=== PATIENT | male | born 1975 | race Caucasian/White ===

== ENCOUNTER 2023-05-23 10:28 | Observation (INO) | payer OTHER ==
[2023-05-23] MEDS ORDERED: ONDANSETRON 4 MG/2 ML VIAL IVPUSH ONE (11:07)
[2023-05-23] MEDS ORDERED: SODIUM CHLORIDE 0.9% 500 ML INFUS.BAG IV ONE ×3 (11:07→13:11)
[2023-05-23] MEDS ORDERED: FAMOTIDINE 20 MG/50 ML IVPB 20 MG/50 ML MG IVPB ONE ×2 (11:07→12:40)
[2023-05-23] MEDS ORDERED: diazePAM CARPU-JECT 10 MG/2 ML DISP.SYRIN IVPUSH ONE (11:27)
[2023-05-23 11:33] LABS: BASO % 0.3 % (0-2.0); EOS % 0.3 % (0-4.5); HEMATOCRIT 47.7 % (35.4-49); HEMOGLOBIN 16.2 GM/dL (11.7-16.9); LYMPH % 21.5 % (8-40); MCH 30.9 pg (25.7-33.7); MEAN CELL VOLUME 90.8 fl (80-96); MONO % 3.8 % (3.8-10.2); NEUT % 74.1 % (42.8-82.8); PLATELET COUNT 255 10^3/uL (134-434); RBC 5.25 M/mm3 (4.00-5.60)
[2023-05-23 11:39] LABS: INR 1.12 (0.83-1.09)
[2023-05-23 11:42] LABS: ACTIVATED PTT 27.8 SECONDS (25.2-36.5)
[2023-05-23 12:30] VITALS: BMI 23.7
[2023-05-23 12:32] LABS: CALCIUM 10.3 mg/dL (8.5-10.1); POTASSIUM 3.5 mmol/L (3.5-5.1)
[2023-05-23 12:33] LABS: ALBUMIN 4.5 g/dl (3.4-5.0); BLOOD UREA NITROGEN 23.1 mg/dL (7-18)
[2023-05-23 12:36] LABS: CREATININE 1.4 mg/dL (0.55-1.3)
[2023-05-23 12:38] LABS: BILIRUBIN,TOTAL 0.9 mg/dL (0.2-1); TOT PROT 7.4 g/dl (6.4-8.2)
[2023-05-23] MEDS ORDERED: diazePAM CARPU-JECT 10 MG/2 ML DISP.SYRIN ONE (12:40)
[2023-05-23 12:47] LABS: MAGNESIUM 1.8 mg/dL (1.8-2.4)
[2023-05-23 18:11] LABS: POTASSIUM 4.1 mmol/L (3.5-5.1)
[2023-05-23 18:13] LABS: BLOOD UREA NITROGEN 19.4 mg/dL (7-18)
[2023-05-23 18:19] LABS: CALCIUM 8.5 mg/dL (8.5-10.1)
[2023-05-23] MEDS ORDERED: MECLIZINE HCL 12.5 MG TABLET PO PRN (21:59)
[2023-05-23] MEDS ORDERED: SODIUM CHLORIDE 1,000 ML IV SCH (22:00)
[2023-05-23 23:00] LABS: URINE APPEARANCE CLEAR; URINE BILIRUBIN NEGATIVE (NEGATIVE); URINE COLOR YELLOW; URINE GLUCOSE (UA) NEGATIVE (NEGATIVE); URINE KETONE NEGATIVE (NEGATIVE); URINE LEUK ESTERASE NEGATIVE (NEGATIVE); URINE NITRITE NEGATIVE (NEGATIVE); URINE PROTEIN NEGATIVE (NEGATIVE); URINE UROBILINOGEN 0.2 mg/dL (0.2-1.0)
[2023-05-23 23:20] LABS: COCAINE, UR NEGATIVE (NEGATIVE); METHADONE, UR NEGATIVE (NEGATIVE); OPIATES, URI NEGATIVE (NEGATIVE); URINE AMPHETAMINES NEGATIVE (NEGATIVE)
[2023-05-23] MEDS: INSULIN SLIDING SCALE (NOVOLOG) 1 VIAL SQ SCH (23:20)
[2023-05-23 23:21] LABS: PHENCYCLIDINE,URINE NEGATIVE (NEGATIVE); URINE BARBITURATES NEGATIVE (NEGATIVE)
[2023-05-23 23:46] LABS: URINE BENZODIAZEPINES POSITIVE (NEGATIVE)
[2023-05-24] MEDS: INSULIN SLIDING SCALE (NOVOLOG) 1 VIAL SQ SCH ×2 (07:44→12:45)
[2023-05-24 08:53] LABS: HEMATOCRIT 40.1 % (35.4-49); HEMOGLOBIN 14.4 GM/dL (11.7-16.9); MCH 32.2 pg (25.7-33.7); MCHC 35.8 g/dl (32.0-35.9); MEAN PLT VOLUME 9.2 fl (7.5-11.1); PLATELET COUNT 218 10^3/uL (134-434); RBC 4.46 M/mm3 (4.00-5.60); RDW 13.6 % (11.9-15.9); WHITE BLOOD COUNT 10.4 K/mm3 (4.0-10.0)
[2023-05-24 09:13] LABS: POTASSIUM 3.6 mmol/L (3.5-5.1)
[2023-05-24 09:18] LABS: CALCIUM 8.6 mg/dL (8.5-10.1)
[2023-05-24 09:19] LABS: ALBUMIN 3.6 g/dl (3.4-5.0); BLOOD UREA NITROGEN 15.9 mg/dL (7-18); MAGNESIUM 2.1 mg/dL (1.8-2.4)
[2023-05-24 09:22] LABS: CREATININE 0.8 mg/dL (0.55-1.3); PHOSPHOROUS 2.9 mg/dL (2.5-4.9)
[2023-05-24 09:24] LABS: BILIRUBIN,TOTAL 0.6 mg/dL (0.2-1); TOT PROT 6.1 g/dl (6.4-8.2)
[2023-05-24] MEDS ORDERED: LACTATED RINGERS SOLUTION 1,000 ML/1,000 ML INFUS.BAG IV SCH (09:30)
[2023-05-24] MEDS ORDERED: ENOXAPARIN NA (PORCINE) 40 MG/0.4 ML DISP.SYRIN SQ SCH (10:00)
[2023-05-24] MEDS ORDERED: ENOXAPARIN NA (PORCINE) 40 MG/0.4 ML DISP.SYRIN SQ ONE (10:53)
[2023-05-24] MEDS ORDERED: MECLIZINE HCL 12.5 MG TABLET ONE (12:46)
[2023-05-24 16:15] VITALS: BP 133/75; PULSE 82; RESP 17; TEMP 98
== END 2023-05-24 16:00 | disposition home or self-care (01) ==
LOC: JER 10:28 → JERBED 19:52
PROVIDERS: ADMIT Internal Medicine; ATTEND Internal Medicine
PROC: 3E033NZ Introduction of Analgesics, Hypnotics, Sedatives into Peripheral Vein, Percutaneous Approach (ICD-10-PCS; principal; 2023-05-23)
PROC: 3E023GC Introduction of Other Therapeutic Substance into Muscle, Percutaneous Approach (ICD-10-PCS; 2023-05-23)
PROC: 3E023GC Introduction of Other Therapeutic Substance into Muscle, Percutaneous Approach (ICD-10-PCS; 2023-05-23)
PROC: 3E0337Z Introduction of Electrolytic and Water Balance Substance into Peripheral Vein, Percutaneous Approach (ICD-10-PCS; 2023-05-23)
DX: R42 Dizziness and giddiness (principal); N17.9 Acute kidney failure, unspecified; R94.31 Abnormal electrocardiogram [ECG] [EKG]; N40.0 Benign prostatic hyperplasia without lower urinary tract symptoms; R11.0 Nausea; M51.26 Other intervertebral disc displacement, lumbar region
CPT/HCPCS: 0241U-QW; 36415; 70450-TC; 70551-TC; 71045-TC-FY; 80048; 80053; 80061; 80307; 81003; 82550; 82962; 83690; 83735; 84100; 84443; 84484; 85025; 85027; 85610; 85730; 93005; 93010; 99285-25; G0378